=== PATIENT | female | born 1990 | race Two or more races ===

== ENCOUNTER 2021-05-19 13:13 | Emergency (ER) | payer MEDICAID ==
--- NOTE | 2021-05-19 13:43 | EDM.PDOC ---
ED HPI GENERAL MEDICAL PROBLEM - General Chief Complaint: ENT Problem Stated Complaint: TOOTH ACHE Time Seen by Provider: 05/19/21 13:25 Source of Information: Reports: Patient History Limitations: Reports: No Limitations - History of Present Illness INITIAL COMMENTS - FREE TEXT/NARRATIVE: right lower wisdom tooth pain , has been ongoing for months last 2 weeks got worse : more swelling gums coving the wisdom tooth , throbbing despite tylenol and ibuprofen use not able to see dentist as can not afford it Onset: Gradual Onset Date: 05/05/21 Duration: Getting Worse Location: Reports: Head Quality: Reports: Ache, Throbbing Severity: Moderate Improves with: Reports: Medication Worsens with: Reports: Cold Therapy, Eating, Heat Therapy, Movement Associated Symptoms: Reports: No Other Symptoms Treatments HORSE RACER: Reports: Acetaminophen, NSAIDS right side wisdom teeth Pain Score (Numeric/FACES): 10 - Related Data Allergies Allergy/AdvReac Type Severity Reaction Status Date / Time No Known Allergies Allergy Verified 05/19/21 13:27 Home Meds: Home Meds Clindamycin HCl 300 mg PO TID #30 capsule 05/19/21 [Rx] ED ROS ENT - Review of Systems Review Of Systems: Comprehensive ROS is negative, except as noted in HPI. ED EXAM, ENT - Physical Exam Exam: See Below Exam Limited By: No Limitations General Appearance: Alert, WD/WN, No Apparent Distress Eye Exam: Bilateral Eye: EOMI Ears: Normal TMs Nose: Normal Inspection Mouth/Throat: Dental Pain, Dental Tenderness (right wisdom tooth covered by gums and area is swollen and tender), Gum Swelling Head: Atraumatic, Normocephalic Neck: Supple, Non-Tender Respiratory/Chest: No Respiratory Distress, Lungs Clear Cardiovascular: Regular Rate, Rhythm GI/Abdominal: Soft, Non-Tender Back: Normal Inspection, Full Range of Motion Extremities: Normal Inspection, Normal Range of Motion Neurological: Alert Psychiatric: Normal Affect, Normal Mood Course - Vital Signs Last Recorded V/S: Last Vital Signs Temp 36.7 C 05/19/21 13:27 Pulse 71 05/19/21 13:27 Resp 17 05/19/21 13:27 BP 130/100 H 05/19/21 13:27 Pulse Ox 94 L 05/19/21 13:27 - Orders/Labs/Meds Meds: Medications Discontinued Medications Generic Name Dose Route Start Last Admin Trade Name Freq PRN Reason Stop Dose Admin Clindamycin HCl 300 mg 05/19/21 13:50 Clindamycin Hcl 150 Mg Cap PO 05/19/21 13:51 ONETIME ONE Clindamycin HCl 150 mg 05/19/21 14:04 Clindamycin Hcl 150 Mg Cap PO 05/19/21 14:05 ONETIME ONE Ketorolac Tromethamine 60 mg 05/19/21 13:48 Ketorolac 30 Mg/Ml Sdv IM 05/19/21 13:49 ONETIME ONE Saccharomyces Boulardii 250 mg 05/19/21 13:50 Saccharomyces Boulardii (Probiotic) 250 Mg Cap PO 05/19/21 13:51 NOW STA Saccharomyces Boulardii 250 mg 05/19/21 14:04 Saccharomyces Boulardii (Probiotic) 250 Mg Cap PO 05/19/21 14:05 NOW STA Departure - Departure Time of Disposition: 14:15 Disposition: Home, Self-Care 01 Condition: Fair Clinical Impression: Dental caries, Gingivitis, acute, non-plaque induced - Discharge Information *PRESCRIPTION DRUG MONITORING PROGRAM REVIEWED*: Not Applicable *COPY OF PRESCRIPTION DRUG MONITORING REPORT IN PATIENT AMAN: Not Applicable Prescriptions: Clindamycin HCl 300 mg PO TID #30 capsule Instructions: Preventive Dental Care, Adult, Trench Mouth Referrals: PCP,None [Primary Care Provider] - Forms: ED Department Discharge Additional Instructions: 1) Warm salt water gurgles 3 time daily 2) Use tylenol in addition to prescribed antiinflammatory 3) make appt to Follow you with your provider Sepsis Event Note (ED) - Evaluation Sepsis Screening Result: No Definite Risk - Focused Exam Vital Signs: Vital Signs Temp Pulse Resp BP Pulse Ox 05/19/21 13:27 36.7 C 71 17 130/100 H 94 L
[2021-05-19] MEDS ORDERED: Ketorolac 30 MG/ML SDV IM ONE (13:48)
[2021-05-19] MEDS ORDERED: Clindamycin HCl 150 MG Cap PO ONE ×3 (13:50→14:15)
[2021-05-19] MEDS ORDERED: Saccharomyces Boulardii (Probiotic) 250 MG Cap PO STA ×3 (13:50→14:15)
== END 2021-05-19 14:25 | disposition home or self-care (01) ==
LOC: FB.ED 13:13
DX: K05.01 Acute gingivitis, non-plaque induced (principal); K02.9 Dental caries, unspecified
CPT/HCPCS: 96372; 99283; A9270; J1885